=== PATIENT | female | born 1980 | race Caucasian/White ===

== ENCOUNTER → 2020-06-15 09:30 | Outpatient (BNVA) | payer SELFPAY | PROVIDERS: Family Provider Family Medicine; Visit Provider Obstetrics & Gynecology | DX: Z12.39 Encounter for other screening for malignant neoplasm of breast (principal); B37.2 Candidiasis of skin and nail; Z01.419 Encounter for gynecological examination (general) (routine) without abnormal findings | CPT/HCPCS: 80061; 83036; 85025; 88175 ==

== ENCOUNTER → 2020-06-23 08:06 | Outpatient (BNVA) | payer SELFPAY | PROVIDERS: Family Provider Family Medicine; Visit Provider Obstetrics & Gynecology | DX: N93.9 Abnormal uterine and vaginal bleeding, unspecified (principal) | CPT/HCPCS: 76830 ==

== ENCOUNTER → 2020-06-27 10:02 | Outpatient (BNVA) | payer SELFPAY | PROVIDERS: Family Provider Family Medicine; Visit Provider Obstetrics & Gynecology | DX: N93.9 Abnormal uterine and vaginal bleeding, unspecified (principal) | CPT/HCPCS: 81025 ==

== ENCOUNTER → 2020-07-22 11:49 | Outpatient (BNVA) | payer SELFPAY | PROVIDERS: Family Provider Family Medicine; Visit Provider Obstetrics & Gynecology | DX: E28.2 Polycystic ovarian syndrome (principal) | CPT/HCPCS: 87635 ==

== ENCOUNTER 2020-07-28 06:24 | Day surgery (SDC) | payer SELFPAY ==
[2020-07-25 08:29] VITALS: BMI 52.4
--- NOTE | 2020-07-25 08:53 | P.ANESASSM_ITS ---
Pre-Anesthetic Assessment Pre-Anesthetic Assessment: Height/Weight: Height 1.75 m Weight 161.025 kg Preop Diagnosis: Vaginal bleeding Proposed Procedure: Operation Date: 07/28/20 07:55 Proposed Procedures p Hysteroscopy [id number] N93.9(Not Applicable) - Cyril Hollis MD s Dilation And Curettage (D&C)(Not Applicable) - Cyril Hollis MD Familial anesthetic complications: None Social: Social History: No alcohol and No tobacco Exam: Pre-Anes Outpt Exam: alert, oriented x 3, clear to auscultation bilaterally and regular rate & rhythm Airway: Cervical ROM: WNL MP: 1 Dentition: Full Metabolic: Metabolic: Morbid obesity and Thyroid Anesthetic Plan: ASA status: 2 Anesthesia: General Risk of > 500 ml blood loss (7ml/kg in children): No Other Pertinent Information: Patient last took phentermine on - She is holding til after procedure PFSH Anesthesia PFSH: Medical History Hypothyroid Diagnosed 2016 and is managed by endocrinology in [place]-Dr. Jermain Wallace whom she sees every 3 to 6 months. No pertinent past medical history Denies: heart, lung, liver, kidney problems, diabetes, DVT/PE. PCP: None Surgical History S/P lateral meniscus repair of right knee 2014 S/P medial meniscus repair of left knee 2016 Family History Father Diabetes Thyroid condition Grandfather Stroke paternal Hyperlipidemia paternal Diabetes paternal Grandmother Thyroid condition paternal Pancreas cancer maternal Denies family history of Colon cancer Ovarian cancer Heart disease Breast cancer Hypertension Uterine cancer Social History Smoking and tobacco status: never smoked Alcohol intake: unknown Additional social history: - Tobacco Use: Denies current or past use Alcohol Use: Drinks once yearly on average Drug Use: Denies Work/Study Status: 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
[2020-07-28] VITALS (7 sets, daily range): BP systolic 114–154; BP diastolic 75–92; PULSE 54–78; RESP 16–18; TEMP 36.2–36.4; O2SAT 92–100
--- NOTE | 2020-07-28 | US_ITS ---
WS: [id number] Limited pelvic ultrasound. HISTORY: Intraoperative imaging during biopsy. Intraoperative imaging for intraoperative procedure. Uterus is midline and there is a linear hyperech oic instrument within the endometrial canal. Imaging for Dr. Ramirez.
--- NOTE | 2020-07-28 06:57 | W.PM.OPSUD ---
Surgery/Procedure H&P Update DATE OF PROCEDURE: July 28, 2020 DATE H&P PERFORMED: 06/27/20 H&P UPDATE INFORMATION: I have reviewed H&P completed within last 30 days, I have examined patient prior to procedure, No changes to prior documentation and H&P is in [facility] EMR on date indicated PREOP DIAGNOSIS: AUB PLANNED PROCEDURE: Operation Date: 07/28/20 07:55 Proposed Procedures p Hysteroscopy [id number] N93.9(Not Applicable) - Cyril Hollis MD s Dilation And Curettage (D&C)(Not Applicable) - Cyril Hollis MD
[2020-07-28] MEDS: sodium chloride 0.9% 1,000 ML 30 ML IV (07:00)
--- NOTE | 2020-07-28 07:18 | P.ANESUD_ITS ---
Pre-Anesthetic Update Pre-Anesthetic Assessment: Date of Surgery/Procedure: 07/28/20 Preop Beulah gnosis: AUB Proposed Procedure: Operation Date: 07/28/20 07:55 Proposed Procedures p Hysteroscopy [id number] N93.9(Not Applicable) - Cyril Hollis MD s Dilation And Curettage (D&C)(Not Applicable) - Cyril Hollis MD Any changes to Pre-Anesthetic Assessment?: No Last Intake: Intake Last Liquid Date 07/27/20 Last Liquid Time 23:00 Last Solid Date 07/27/20 Vitals: Temperature 97.2 F L 07/28/20 06:41 Temperature Source Temporal Artery S can 07/28/20 06:41 Pulse Rate 78 07/28/20 06:41 Respiratory Rate 18 07/28/20 06:41 Blood Pressure 154/92 07/28/20 06:41 Blood Pressure Rosalia n 112 07/28/20 06:41 Pulse Oximetry 100 07/28/20 06:41 Oxygen Delivery Me thod 07/28/20 06:44 Exam: Pre-Anes Outpt Exam: alert, oriented x 3, clear to auscultation bilaterally and regular rate & rhythm Cardiac Studies: No Data to Display
[2020-07-28 07:25] LABS: Basophils # 0.1 10^3/uL (0.0-0.1); Eosinophils # 0.2 10^3/uL (0.0-0.8); Eosinophils % 1.8 %; Hematocrit 37.5 % (37.0-47.0); Hemoglobin 11.5 g/dL (11.5-15.3); Lymphocytes # 2.6 10^3/uL (0.8-4.8); Lymphocytes % 31.8 %; Mean Corpuscular HGB Conc 30.7 g/dL (30.0-36.0); Mean Corpuscular Hemoglobin 26.9 pg (28.0-34.0); Mean Corpuscular Volume 87.6 fL (81-99); Mean Platelet Volume 9.6 fL (7.4-10.4); Monocytes # 0.8 10^3/uL (0.2-0.9); Monocytes % 9.5 %; Neutrophils # 4.59 10^3/uL (1.8-7.7); Neutrophils % 55.7 %; Nucleated Red Blood Cells % 0 %; Platelet Count 313 10^3/cmm (130-400); Red Blood Count 4.28 10^6/uL (4.1-5.3); Red Cell Distribution Width 13.4 % (12.1-15.1); White Blood Count 8.2 10^3/uL (4.0-10.0)
[2020-07-28 09:08] LABS: OR HCG Qualitative Urine Negative (Negative)
[2020-07-28] MEDS: silver nitrate applicator 1 EACH (09:42)
--- NOTE | 2020-07-28 09:52 | PM.OP ---
Operative Report Date of procedure: July 28, 2020 OPERATIVE REPORT Date of surgery: 07/28/2020 Date of dictation: 07/28/2020 Preoperative diagnosis: Abnormal uterine bleeding-likely PCOS, Postoperative diagnosis/findings: On examination under anesthesia 10 weeks size retroverted retroflexed uterus, minimal descent, no prolapse. On hysteroscopy normal endocervical cavity, endometrial cavity shows small polyps especially around left ostia, bilateral ostia noted. No areas concerning for malignancy identified. Hysteroscopy intake-thousand mL, hysteroscopy output-900 mL. Procedure done: Hysteroscopy, D&C Specimens removed/disposition of specimens: Endometrial curettings Surgeon: Dr. Cyril Ramirez quality control assistant: Judith Anesthesia: General endotracheal tube anesthesia Estimated blood loss: Less than 25 ml Intravenous fluids: 400 mL Urine output: None Medications: As per anesthesia records Complications: None patient was extubated and taken to the recovery room in a stable condition. PROCEDURE: After consent was obtained patient was taken to the operating room where she is placed under laryngeal mask anesthesia without any difficulty. She was placed supine on the table in lithotomy position. Care was taken to ensure that her legs were well positioned to avoid pressure points. She was then prepped and draped in the usual sterile fashion. Exam under anesthesia was done at this time which showed findings noted above. The weighted speculum and lateral vaginal wall retractors were placed in the vagina and the cervix was visualized. The cervix appeared normal. Using ultrasound guidance-the cervix was dilated to a 15 Paula dilator. This allowed placement of a 3 mm hysteroscope into the uterine cavity without any difficulty. Once the hysteroscope was placed in the uterine cavity, the endocervical canal was visualized and appeared normal .the uterine cavity was visualized and small polyps were noted near the fundus millimeters in size mostly around the left ostia. The hysteroscope was were removed and sharp curettage was performed again under ultrasound guidance.The endometrial curettings were sent to pathology. Hysteroscope was placed again and polyps no longer seen. No active bleeding was noted from the cervix. Tenaculum was removed and hemostasis was achieved with silver nitrate. Good hemostasis was achieved. All instruments were removed from the vagina. Patient was cleaned well and anesthesia was reversed without any difficulty. She was taken to the recovery in a stable condition. FOLLOW UP: Follow-up in 2 weeks and 6 weeks with surgeon MEDICATION ON DISCHARGE: Colace 100 mg by mouth every 12 hours when necessary constipation, 30 tablets, no refills Ibuprofen 800 mg by mouth every 8 hours when necessary pain, 60 tablets, no refills. Continue other home medication DISPOSITION: Home in a stable condition Pre-op Diagnosis: PEDRO
--- NOTE | 2020-07-28 09:56 | SUR.PHASEI ---
PT AWAKE ALERT TAKING OCC ICE CHIPS ON RA TRIAL, VSS ABD LARGE SOFT ZOË PAD IN PLACE.
--- NOTE | 2020-07-28 10:50 | ANE.PACU2 ---
Inpatient post-anesthesia follow up: Airway intact: Yes Vital signs: Temperature 97.4 F Pulse Rate 55 Respiratory Rate 18 Blood Pressure 114/75 Pulse Oximetry 93 Oxygen Delivery Me thod Room Air Oxygen Flow Rate 8 Fraction of Inspir ed Oxygen Hydration adequate: Yes Nausea and vomiting: No Pain level: 1 Mental status: Baseline
== END 2020-07-28 10:53 | disposition home or self-care (01) ==
PROVIDERS: Visit Provider Obstetrics & Gynecology
PROC: 0UJD8ZZ Inspection of Uterus and Cervix, Via Natural or Artificial Opening Endoscopic (ICD-10-PCS; CPT 58555; principal; 2020-07-28 07:55)
PROC: (CPT 58120; 2020-07-28 07:55)
DX: N85.00 Endometrial hyperplasia, unspecified (principal); E28.2 Polycystic ovarian syndrome; E03.9 Hypothyroidism, unspecified
CPT/HCPCS: 58558; 12345; 36415; 76998; 81025; 84703; 85025; 86850; 86900; 88305; J0330; J2405; J2704; J3010; J3490; J7030

== ENCOUNTER → 2020-12-14 08:12 | Outpatient (BNVA) | payer SELFPAY | PROVIDERS: Visit Provider Obstetrics & Gynecology | DX: N85.00 Endometrial hyperplasia, unspecified (principal) | CPT/HCPCS: 81025; 88305 ==

== ENCOUNTER → 2021-07-02 10:49 | Outpatient (BNVA) | payer OTHER, SELFPAY | PROVIDERS: Visit Provider Registered Nurse Neonatal Intensive Care | DX: Z20.822 Contact with and (suspected) exposure to COVID-19 (principal) | CPT/HCPCS: 87635 ==

== ENCOUNTER → 2021-08-29 09:15 | Outpatient (BNVA) | payer SELFPAY | PROVIDERS: Visit Provider Obstetrics & Gynecology | DX: E28.2 Polycystic ovarian syndrome (principal); N85.00 Endometrial hyperplasia, unspecified | CPT/HCPCS: 81025; 88305 ==

== ENCOUNTER → 2022-03-13 14:55 | Outpatient (BNVA) | payer SELFPAY | PROVIDERS: Visit Provider Obstetrics & Gynecology | DX: N84.1 Polyp of cervix uteri (principal); N85.00 Endometrial hyperplasia, unspecified | CPT/HCPCS: 81025; 88305 ==

== ENCOUNTER 2023-03-20 23:49 | Emergency (ER) | payer OTHER, SELFPAY ==
[2023-03-20 23:52] VITALS: BP 172/84; PULSE 74; RESP 17; TEMP 36.7; O2SAT 99; BMI 49.4
[2023-03-20 23:58] VITALS: BP 153/87; PULSE 59; RESP 18; O2SAT 96
--- NOTE | 2023-03-20 23:59 | W.ED.ABDPA2 ---
HPI - Abdominal Pain General: Chief Complaint: Abdominal Pain Stated Complaint: back pain,right abdomen pain Time Seen by Provider: 03/20/23 23:59 History of Present Illness: 43-year-old female comes in today with complaints of right flank pain radiating into the abdomen starting this morning. Patient reports movement makes pain worse. Patient reports that sitting up makes the pain worse. Patient does report some increased urinary frequency. Last menstrual cycle was 1 week ago. Patient has had gastric bypass surgery. Patient does continue to have her gallbladder and appendix. Patient reports no fever or vomiting. Patient reports no change in her stools. Associated Symptoms: Reports nausea; Denies constipation, diarrhea and vomiting Review of Systems General: Reports: 10 or more systems reviewed and unremarkable except in HPI and below Card: Denies: chest pain Resp: Denies: dyspnea GI: Reports: abdominal pain and nausea; Denies: vomiting, diarrhea or constipation : Reports: flank pain Musc: Reports: back pain Skin/Breast: Denies: rash Neuro: Denies: headache(s) PFS ED PFSH: Medical History (Updated 03/21/23 @ 02:05 by YESICA Daily) Hypothyroid Diagnosed 2016 and is managed by endocrinology in [place]-Dr. Jermain Wallace whom she sees every 3 to 6 months. No pertinent past medical history Denies: heart, lung, liver, kidney problems, diabetes, DVT/PE. PCP: None Surgical History S/P lateral meniscus repair of right knee 2014 S/P medial meniscus repair of left knee 2016 Status post hysteroscopy 07/28/2020---hysteroscopy D&C for abnormal uterine bleeding by Dr. Ramirez at [facility]-endometrium appeared normal with small polypoid growth of endometrium--pathology showed endometrial hyperplasia without atypia. No malignancy identified. Family History Father Diabetes Thyroid condition Grandfather Stroke paternal Hyperlipidemia paternal Diabetes paternal Grandmother Thyroid condition paternal Pancreas cancer maternal Denies family history of Colon cancer Ovarian cancer Heart disease Breast cancer Hypertension Uterine cancer Social History (Updated 03/16/22 @ 12:42 by Cyril Hollis MD) Substance/Drug Use: never Physical Exam Const: COMMON NORMALS: alert HENMT: COMMON NORMALS: normocephalic HEAD & SCALP: normocephalic THROAT: posterior oropharynx normal Neck/C-Spine: COMMON NORMALS: full ROM Resp: COMMON NORMALS: normal respiratory effort and clear to auscultation bilaterally AUSCULTATION: clear to auscultation bilaterally Cardio: COMMON NORMALS: regular rate and regular rhythm RATE: regular rate RHYTHM: regular rhythm GI: COMMON NORMALS: Soft to palpation PALPATION: Yes Soft to palpation and Yes Tenderness to palpation present (GI) Details: RLQ and RUQ : COMMON NORMALS: Yes no CVA tenderness BLADDER/KIDNEY EXAM: Yes no CVA tenderness Back/Pelvis: COMMON NORMALS: no CVA tenderness THORACIC SPINE/UPPER BACK: No paraspinal muscle tenderness LUMBAR SPINE/LOWER BACK: Yes lumbar spinal tenderness and No paraspinal muscle tenderness Extremity: COMMON NORMALS: no pedal edema Neuro: SENSORIUM/ORIENTATION: Yes alert Skin: COMMON NORMALS: turgor normal GENERAL SKIN EXAM: turgor normal Course Vital Signs: Vital signs: Vital Signs Temperature 98.0 F 03/20/23 23:52 Pulse Rate 50 L 03/21/23 01:30 Respiratory Rate 18 03/21/23 00:28 Blood Pressure 135/82 03/21/23 01:30 Pulse Oximetry 97 03/21/23 01:30 Oxygen Delivery Me thod Room Air 03/20/23 23:58 MDM - Abdominal Pain Medical Decision Making 43-year-old female comes in today for complaints of left back pain radiating into her abdomen starting this morning. Patient reports nausea. Patient denies any fever. Patient appears nontoxic. Patient appears in mild to moderate pain. On exam patient has some palpable tenderness of the lumbar spine. No CVA tenderness on percussion. Abdomen soft with some mild tenderness on palpation. Bowel sounds are active. Patient does have some exacerbation of pain with leg lift test on the right at 45 degrees. Differential diagnosis includes but not limited to musculoskeletal back pain, gallbladder disease, appendicitis, renal calculi, UTI, gastroenteritis. Laboratory values noted a white count of 10.4, anion gap was 19.6, ALT's were slightly elevated at 37, alk phos was at 112, bilirubin was normal, urinalysis showed blood. CT of the abdomen pelvis noted a 5 mm calculus in the right UVJ, and cholelithiasis, and intact sleeve gastrectomy and duodenal switch procedure. Reviewed exam with patient with recommendations for treatment of renal calculi. Discussed with patient the need for follow-up with urology for further treatment. Discussed need for return to the ER for high fever and uncontrolled pain. Patient reported understanding and agreed to plan. Lab Data 03/21/23 00:14 03/21/23 00:14 Labs/Radiology: Radiology Impressions Abdomen/Pelvis CT 03/21/23 00:00 IMPRESSION: 1. Hynh-ct-tbfqveah right hydroureteronephrosis secondary to a 5 x 3 mm calculus at the right UVJ. 2. Previous sleeve gastrectomy and duodenal switch procedure. 3. Cholelithiasis. Laboratory Results WBC 10.4 10^3/uL (4.0-10.0) H 03/21/23 00:14 RBC 4.48 10^6/uL (4.1-5.3) 03/21/23 00:14 Hgb 12.2 g/dL (11.5-15.3) 03/21/23 00:14 Hct 38.3 % (37.0-47.0) 03/21/23 00:14 MCV 85.5 fl (81-99) 03/21/23 00:14 MCH 27.2 pg (28.0-34.0) L 03/21/23 00:14 MCHC 31.9 g/dL (30.0-36.0) 03/21/23 00:14 RDW 15.2 % (12.1-15.1) H 03/21/23 00:14 Plt Count 312 10^3/cmm (130-400) 03/21/23 00:14 MPV 10.4 fL (7.4-10.4) 03/21/23 00:14 Neut % (Auto) 79.1 % 03/21/23 00:14 Lymph % (Auto) 13.6 % 03/21/23 00:14 [place] % (Auto) 6.3 % 03/21/23 00:14 Eos % (Auto) 0.1 % 03/21/23 00:14 Baso % (Auto) 0.5 % 03/21/23 00:14 Neut # (Auto) 8.20 10^3/uL (1.8-7.7) H 03/21/23 00:14 Lymph # (Auto) 1.4 10^3/uL (0.8-4.8) 03/21/23 00:14 [place] # (Auto) 0.7 10^3/uL (0.2-0.9) 03/21/23 00:14 Eos # (Auto) 0.0 10^3/uL (0.0-0.8) 03/21/23 00:14 Baso # (Auto) 0.1 10^3/uL (0.0-0.1) 03/21/23 00:14 Nucleated RBC % (auto) 0 % 03/21/23 00:14 Nucleated RBCs # 0.0 /100WBC 03/21/23 00:14 Sodium 136 mmol/L (136-145) 03/21/23 00:14 Potassium 3.6 mmol/L (3.5-5.1) 03/21/23 00:14 Chloride 100 mmol/L (98-107) 03/21/23 00:14 Carbon Dioxide 20 mmol/L (22-29) L 03/21/23 00:14 Anion Gap 19.6 (5-19) H 03/21/23 00:14 BUN 17 mg/dL (6-20) 03/21/23 00:14 Creatinine 0.9 mg/dL (0.5-0.9) 03/21/23 00:14 GFR Calculation 68.0 mL/min (90-130) L 03/21/23 00:14 Glucose 115 mg/dL (65-115) 03/21/23 00:14 Calculated Osmolality 284 mOsm/kg (285-295) L 03/21/23 00:14 Calcium 9.8 mg/dL (8.5-10.5) 03/21/23 00:14 Total Bilirubin 0.5 mg/dL (0.15-1.2) 03/21/23 00:14 AST 28 U/L (0-32) 03/21/23 00:14 ALT 37 U/L (0-33) H 03/21/23 00:14 Alkaline Phosphatase 112 U/L (35-105) H 03/21/23 00:14 Total Protein 7.6 g/dL (6.6-8.7) 03/21/23 00:14 Albumin 4.4 g/dL (3.5-5.2) 03/21/23 00:14 Globulin 3.2 g/dL (1.3-4.6) 03/21/23 00:14 Lipase 19 U/L (13-60) 03/21/23 00:14 HCG, Qual Negative (Negative) 03/21/23 00:14 Urine Color Yellow (Yellow) 03/21/23 01:54 Urine Appearance Hazy (CLEAR) A 03/21/23 01:54 Urine pH 5 (5-7) 03/21/23 01:54 Ur Specific [place] 1.025 (1.005-1.030) 03/21/23 01:54 Urine Protein Neg (Negative) 03/21/23 01:54 Urine Glucose (UA) Norm (Normal) 03/21/23 01:54 Urine Ketones 2+ (Negative) H 03/21/23 01:54 Urine Blood 3+ (Negative) H 03/21/23 01:54 Urine Nitrate Negative (Negative) 03/21/23 01:54 Urine Bilirubin Neg (Negative) 03/21/23 01:54 Urine Urobilinogen Neg mg/dL (Negative) 03/21/23 01:54 Ur Leukocyte Esterase Negative (Negative) 03/21/23 01:54 Urine RBC 25-40 /hpf (0-2) H 03/21/23 01:54 Urine WBC None /hpf (0-5) 03/21/23 01:54 Ur Squamous Epith Cells 10-15 /hpf (0-5) H 03/21/23 01:54 Amorphous Sediment Not Reportable 03/21/23 01:54 Urine Bacteria 1+ /hpf (NONE) H 03/21/23 01:54 Urine Mucus 3+ /hpf 03/21/23 01:54 Discharge Plan Discharge Patient Disposition: Home Clinical Impression: Ureteral calculus, right Condition: Stable Prescriptions: New hydrocodone-acetaminophen 5-325 mg tablet 1 tab PO Q6H PRN (Reason: pain) Qty: 10 0RF ondansetron 4 mg tablet,disintegrating 4 mg PO Q8H PRN (Reason: nausea and vomiting) Qty: 10 0RF No Action multivitamin Tablet 1 tab PO DAILY medroxyprogesterone [Provera] 10 mg tablet 10 mg PO DAILY 7 Days Qty: 7 0RF Discharge Orders: Discharge ED (Routine); Ordered 03/21/23 Ordered By: Toby Teresa Referrals: Efren Chau MD [Primary Care Provider] - Discharge Diet: Usual diet Discharge Activity: Increase activity as tolerated Patient Instructions: Ureteral Stones (ED), Opioid Safety Activity Restrictions/Additional Instructions: Continue routine medications and plan. Drink plenty of water and fluids. Activity as tolerated. Use hydrocodone for severe pain. Use Zofran as needed for nausea. Follow-up with urologist. Case management will contact you to assist with follow-up appointment. Return to the ER for worsening symptoms such as high fever greater than 100.4, inability to hold fluids down, uncontrolled pain. Coding Level of Care Code ED Hemodialysis Charge Nurse for Leatha Chauhan
--- NOTE | 2023-03-21 | CTR_ITS ---
PROCEDURE INFORMATION: Exam: CT Abdomen And Pelvis Without Contrast Exam date and time: 03/21/2023 12:38 AM Age: 43 years old Clinical indication: Abdominal pain; Flank; Right; Prior surgery; Surgery date: 1-6 months; Surgery type: Duodenal switch nov; Additional info: Right flank pain radiating into abd TECHNIQUE: Imaging protocol: Computed tomography of the abdomen and pelvis without contrast. Radiation optimization: All CT scans at this facility use at least one of these dose optimization techniques: automated exposure control; mA and/or kV adjustment per patient size (includes targeted exams where dose is matched to clinical indication); or iterative reconstruction. REPORTING DATA: Count of CT and Cardiac NM exams in prior 12 months: This patient has received 0 known CTs and 0 known cardiac nuclear medicine studies in the 12 months prior to the current study. COMPARISON: ES surgery / GI images 07/28/2020 9:27 AM RADIATION DOSE METRICS: Total DLP (mGy-cm): 1266.93 FINDINGS: Limitations: Exam is limited secondary to very large body habitus with bilateral lateral abdominal wall and flank soft tissues extending beyond the scan field of view. Liver: No acute abnormality on noncontrast imaging. Gallbladder and bile ducts: 3 cm calcified gallstone within the gallbladder fundus. No significant biliary ductal dilatation. Pancreas: No acute abnormality. No ductal dilation. Spleen: Punctate splenic calcified granulomas. Adrenal glands: No significant or acute abnormality. Kidneys and ureters: Pueb-iy-gggmtedj right hydroureteronephrosis secondary to a 5 x 3 mm calculus at the right UVJ. Stomach and bowel: Previous sleeve gastrectomy and duodenal switch procedure. No significant or disproportionate large or small bowel distention. No evidence of diverticulitis. Appendix: No findings to suggest acute appendicitis. Intraperitoneal space: No significant fluid collection. No free air. Vasculature: No acute abnormality. No abdominal aortic aneurysm. Lymph nodes: No enlarged lymph nodes. Urinary bladder: Nondistended urinary bladder. Reproductive: Unremarkable as visualized. Bones/joints: No acute osseous abnormality. Lower lumbar degenerative changes. Soft tissues: Very large body habitus. CT/CT kidney stone [id number] IMPRESSION: 1. Uldn-wx-erbroart right hydroureteronephrosis secondary to a 5 x 3 mm calculus at the right UVJ. 2. Previous sleeve gastrectomy and duodenal switch procedure. 3. Cholelithiasis.
[2023-03-21] MEDS: ondansetron 2 mg/ML SDV 2 mL 4 MG IVP (00:18)
[2023-03-21 00:23] VITALS: RESP 18; O2SAT 100
[2023-03-21] MEDS: morphine 4 mg/mL SDV 1 mL IVP ×2 (00:23→01:59)
[2023-03-21 00:24] LABS: Basophils # 0.1 10^3/uL (0.0-0.1); Basophils % 0.5 %; Eosinophils % 0.1 %; Hematocrit 38.3 % (37.0-47.0); Hemoglobin 12.2 g/dL (11.5-15.3); Lymphocytes # 1.4 10^3/uL (0.8-4.8); Lymphocytes % 13.6 %; Mean Corpuscular HGB Conc 31.9 g/dL (30.0-36.0); Mean Corpuscular Hemoglobin 27.2 pg (28.0-34.0); Mean Corpuscular Volume 85.5 fl (81-99); Mean Platelet Volume 10.4 fL (7.4-10.4); Monocytes # 0.7 10^3/uL (0.2-0.9); Monocytes % 6.3 %; Neutrophils % 79.1 %; Nucleated Red Blood Cells % 0 %; Platelet Count 312 10^3/cmm (130-400); Red Blood Count 4.48 10^6/uL (4.1-5.3); Red Cell Distribution Width 15.2 % (12.1-15.1); White Blood Count 10.4 10^3/uL (4.0-10.0)
[2023-03-21] MEDS: sodium chloride 0.9% 500 ML IV (00:27)
[2023-03-21 00:28] VITALS: BP 147/86; PULSE 56; RESP 18; O2SAT 97
[2023-03-21 00:30] LABS: HCG, Serum Qual Negative (Negative)
[2023-03-21 00:40] LABS: Alanine Aminotransferase 37 U/L (0-33); Albumin Level 4.4 g/dL (3.5-5.2); Alkaline Phosphatase 112 U/L (35-105); Anion Gap 19.6 (5-19); Aspartate Amino Transferase 28 U/L (0-32); Blood Urea Nitrogen 17 mg/dL (6-20); Calcium 9.8 mg/dL (8.5-10.5); Carbon Dioxide 20 mmol/L (22-29); Chloride 100 mmol/L (98-107); Globulin 3.2 g/dL (1.3-4.6); Glucose 115 mg/dL (65-115); Lipase 19 U/L (13-60); Osmolality Calculated 284 mOsm/kg (285-295); Potassium 3.6 mmol/L (3.5-5.1); Sodium 136 mmol/L (136-145); Total Bilirubin 0.5 mg/dL (0.15-1.2); Total Protein 7.6 g/dL (6.6-8.7)
[2023-03-21 00:58] VITALS: BP 126/76; PULSE 49; O2SAT 97
[2023-03-21 01:30] VITALS: BP 135/82; PULSE 50; O2SAT 97
[2023-03-21] MEDS: ketorolac 30 mg/mL INJ 15 MG IVP (01:57)
[2023-03-21 02:04] LABS: Add Urine Microscopic? YES; Bilirubin Urine Neg (Negative); Blood Urine 3+ (Negative); Glucose Urine UA Norm (Normal); Ketones Urine 2+ (Negative); Leukocyte Esterase Urine Negative (Negative); Nitrate Urine Negative (Negative); Protein Urine Neg (Negative); RBC Urine 25-40 /hpf (0-2); Specific Gravity, Urine 1.025 (1.005-1.030); Urine Appearance Hazy (CLEAR); Urine Color Yellow (Yellow); Urobilinogen Urine Neg (Negative); pH Urine 5 (5-7)
[2023-03-21 02:05] LABS: Add Urine Culture? No; Bacteria Urine 1+ /hpf; Mucus Urine 3+ /hpf
[2023-03-21 02:17] VITALS: BP 126/72; PULSE 54; RESP 18; O2SAT 99
--- NOTE | 2023-03-21 09:28 | DCPLANNER ---
Addendum entered by Sarah Fraire 03/27/23 11:20: Patient had a follow up appointment scheduled with urology - patient did attend appointment. Addendum entered by Sarah Fraire 03/22/23 09:36: Patient has a follow up appointment scheduled for Saturday, March 25, 2023 at 3:[address] Jefferson at urology. Original Note: process improvement manager had message to schedule a follow up appointment for patient with urology. process improvement manager sent patients information to the front office staff at urology. Patients information will be printed and reviewed. Clinic will call patient with appointment information.
== END 2023-03-21 02:20 | disposition home or self-care (01) ==
PROVIDERS: Emergency Provider Nurse Practitioner Family; PCP Family Medicine
DX: N20.1 Calculus of ureter (principal); K80.20 Calculus of gallbladder without cholecystitis without obstruction
CPT/HCPCS: 74176; 80053; 81001; 83690; 84703; 85025; 96361; 96374; 96375; 96376; 99285; J1885; J2270; J2405; J7040

== ENCOUNTER 2023-03-25 13:53 | Outpatient (CLI) | payer OTHER, SELFPAY ==
--- NOTE | 2023-03-25 14:06 | XR_ITS ---
WS: [id number] XR KUB [id number] REASON FOR EXAM: STONES FINDINGS: The right UVJ calculus demonstrated on the CT of 03/21/2023 is not readily identifiable on the plain f ilm. Possibly this is due to its extremely caudal position and pelvis due to the pelvic relaxation. No other urinary tract calculi are identified. No other acute abdominal or pelvic abnormality. XR/XR KUB [id number] IMPRESSION: No urinary tract calculi identified as above.
== END 2023-03-25 13:54 | disposition home or self-care (01) ==
LOC: RAD 14:00
PROVIDERS: PCP Family Medicine; Visit Provider Urology
DX: N20.1 Calculus of ureter (principal)
CPT/HCPCS: 74018